=== PATIENT | female | born 1955 | race Caucasian/White ===

== ENCOUNTER 2018-11-17 07:51 | Day surgery (SDC) | payer OTHER, BC ==
[2018-11-14 17:00] VITALS: BMI 19.8
[2018-11-17] MEDS ORDERED: ONABOTULINUMTOXINA 200 UNIT/VIAL VIAL NR ONE (09:30)
[2018-11-17] MEDS ORDERED: PROPOFOL 20 ML ONE ×2 (10:55)
[2018-11-17] MEDS ORDERED: SUCCINYLCHOLINE CHLORIDE 200 MG/10 ML VIAL ONE (10:55)
[2018-11-17] MEDS ORDERED: MIDAZOLAM HCL 2 MG/2 ML SINGLE DOSE VIAL ONE (10:56)
--- NOTE | 2018-11-17 11:30 | OP ---
Operative Note - Note: Operative Date: 11/17/18 Pre-Operative Diagnosis: urge incontinence/overactive bladder Operation: cystoscopy and intravesical injection of botox Implants: 200 units of Botox in 20 cc NS Post-Operative Diagnosis: Same as Pre-op Surgeon: Rashel Ying Anesthesia: General
[2018-11-17] MEDS ORDERED: oxyCODONE HCL 5 MG TABLET PO PRN (11:40)
[2018-11-17] MEDS ORDERED: ONDANSETRON 4 MG/2 ML VIAL IVPUSH PRN (11:40)
[2018-11-17] MEDS ORDERED: PROMETHAZINE HCL 25 MG/1 ML VIAL IVPUSH PRN (11:40)
[2018-11-17] MEDS ORDERED: LACTATED RINGERS SOLUTION 1,000 ML IV SCH (11:45)
[2018-11-17 14:11] VITALS: BP 119/73; PULSE 70; TEMP 97.4
--- NOTE | 2018-12-07 18:33 | OP ---
DATE OF OPERATION: 11/17/2018 PREOPERATIVE DIAGNOSIS: Urge incontinence and overactive bladder. POSTOPERATIVE DIAGNOSIS: Urge incontinence and overactive bladder. PROCEDURE: Cystoscopy and intravesical injection of Botox. OPERATION: The patient was placed in the dorsal lithotomy position, prepped and draped in the usual sterile manner after anesthesia and preoperative antibiotics had been administered. At this point, cystoscopy was performed, and 200 units of Botox and 20 mL of normal saline was injected in 1 mL increments along the bladder base and lateral paiz. There was no evidence of abnormal bleeding. The patient tolerated the procedure very well. The disposition of the patient was to the recovery room. Catherine [id number]
== END 2018-11-17 14:00 | disposition home or self-care (01) ==
LOC: JASU-SURG 07:51
PROVIDERS: ATTEND Urology
PROC: 3E0K8GC Introduction of Other Therapeutic Substance into Genitourinary Tract, Via Natural or Artificial Opening Endoscopic (ICD-10-PCS; principal; 2018-11-17 09:30)
DX: N39.41 Urge incontinence (principal); N32.81 Overactive bladder
CPT/HCPCS: 94760; J0585

== ENCOUNTER → 2020-02-04 | Day surgery (SDC) | payer OTHER, BC ==
--- NOTE | 2020-02-11 09:52 | PATH ---
Surgical Pathology Report Patient Name: HALLIE SWENSON [facility]. Rec. #: [id number] /Age/Gender: 1955 (Age: 65) / F Account: [id number] Location: RADIOLOGY [facility] Taken: 02/04/2020 Received: 02/04/2020 Reported: 02/05/2020 Physicians: Catherine Fry M.D. Specimen(s) Received A: BREAST, LEFT, 1:00, RETRO, ULTRASOUND GUIDED CORE BIOPSY B: BREAST, LEFT, 2:00, ULTRASOUND GUIDED CORE BIOPSY Clinical History Palpable mass, nonpalpable lesion Ultrasound findings: Suspicious Left breast 1:00-0.89 cm Left breast o'clock-0.56 cm Final Diagnosis A. BREAST, LEFT, 1:00, RETRO, ULTRASOUND GUIDED CORE BIOPSY: BENIGN BREAST PARENCHYMA WITH DILATED DUCTS, HISTIOCYTIC INFILTRATE, AND CHRONIC INFLAMMATION, SUGGESTIVE OF CYST RUPTURE. B. BREAST, LEFT, 2:00, ULTRASOUND GUIDED CORE BIOPSY: BENIGN BREAST PARENCHYMA. Electronically Signed Sana Troy M.D. Gross Description A. Received in formalin labeled "left 1:00," are 4 toth-yellow, cylindrical portions of fibroadipose tissue ranging from 0.6-1.0 cm in length and averaging 0.1 cm in diameter. The specimens are submitted in toto in one cassette. B. Received in formalin labeled "left 2:00," is a 0.7 x 0.5 x 0.1 cm aggregate of toth-yellow fragments of fibroadipose tissue. The formalin is filtered and the specimen is entirely submitted in one cassette. Time to formalin fixation: Less than one minute Total formalin fixation time: Approximately 8 hours. /02/04/2020 saudi/02/04/2020
== END | disposition home or self-care (01) ==
LOC: JRADUS-SUR 08:35
PROVIDERS: ATTEND Internal Medicine
PROC: 0HBU3ZX Excision of Left Breast, Percutaneous Approach, Diagnostic (ICD-10-PCS; principal; 2020-02-04)
DX: N63.21 Unspecified lump in the left breast, upper outer quadrant (principal)
CPT/HCPCS: 19083; 19084; 87899; 88305-TC; A4648

== ENCOUNTER 2021-12-21 04:08 | Inpatient (IN) | payer OTHER, BC ==
[2021-12-21 06:58] LABS: INR 1.07 (0.83-1.09); PROTHROMBIN TIME (PATIENT) 12.3 SEC (9.7-13.0)
[2021-12-21] MEDS ORDERED: GENTAMICIN SO4 80 MG/2 ML VIAL ONE (07:06)
[2021-12-21] MEDS ORDERED: THROMBIN (BOVINE) 20,000 UNIT VIAL TP ONE (07:06)
[2021-12-21] MEDS ORDERED: LIDOCAINE 1%/EPI 1:100000 (20 ML MULTI DOSE VIAL) ONE (07:06)
[2021-12-21] MEDS ORDERED: VANCOMYCIN 1,000 MG VIAL (RESTRICTED TO ID ONLY) ONE ×2 (07:08→09:18)
[2021-12-21] MEDS ORDERED: BUPIVACAINE LIPOSOME/PF (EXPAREL) 266 MG/20 ML VIAL ONE (07:10)
[2021-12-21] MEDS ORDERED: PROPOFOL 20 ML ONE (07:55)
[2021-12-21] MEDS ORDERED: fentaNYL CITRATE 250 MCG/5 ML VIAL ONE (07:55)
[2021-12-21] MEDS ORDERED: ROCURONIUM BROMIDE 50 MG/5 ML SYRINGE ONE ×2 (07:55→09:46)
[2021-12-21] MEDS ORDERED: MIDAZOLAM HCL 2 MG/2 ML SINGLE DOSE VIAL ONE (07:55)
[2021-12-21] MEDS ORDERED: morphine SULFATE/PF 1 MG/2 ML (2cc Syringe - QUVA) IT ONE (08:18)
[2021-12-21] MEDS ORDERED: ceFAZolin SODIUM 1 GM VIAL IVPB ONE (08:20)
[2021-12-21] MEDS ORDERED: VANCOMYCIN 1,000 MG VIAL (RESTRICTED TO ID ONLY) IVPB ONE (08:40)
[2021-12-21] MEDS ORDERED: THROMBIN (BOVINE) 5,000 UNIT VIAL TP ONE (09:17)
[2021-12-21] MEDS ORDERED: NEOSTIGMINE METHYLSULFATE 0.5 MG/1 ML - 10 ML MDV ONE (09:17)
[2021-12-21] MEDS ORDERED: DEXAMETHASONE SOD PHOSPHATE 4 MG/1 ML VIAL ONE (09:18)
[2021-12-21] MEDS ORDERED: ceFAZolin SODIUM 1 GM VIAL ONE (09:18)
[2021-12-21] MEDS ORDERED: ONDANSETRON 4 MG/2 ML VIAL ONE (09:18)
[2021-12-21] MEDS ORDERED: TRANEXAMIC ACID 1000 MG/10 ML VIAL ONE (09:18)
[2021-12-21] MEDS ORDERED: GLYCOPYRROLATE 0.2 MG/1 ML VIAL ONE (09:18)
[2021-12-21] MEDS ORDERED: BUPIVACAINE LIPOSOME/PF (EXPAREL) 266 MG/20 ML VIAL NR ONE (09:53)
[2021-12-21] MEDS ORDERED: BUPIVACAINE HCL/PF 0.5% (5 MG/ML) 30 ML VIAL IJ ONE (09:54)
[2021-12-21 10:17] LABS: EPI CELLS 10 /uL (0-25.1); HYALINE CASTS 0 /uL (0-3.1); URINE APPEARANCE CLEAR; URINE BACTERIA 15 /uL (0-1359); URINE BILIRUBIN NEGATIVE (NEGATIVE); URINE COLOR YELLOW; URINE GLUCOSE (UA) NEGATIVE (NEGATIVE); URINE KETONE NEGATIVE (NEGATIVE); URINE LEUK ESTERASE NEGATIVE (NEGATIVE); URINE NITRITE NEGATIVE (NEGATIVE); URINE PROTEIN NEGATIVE (NEGATIVE); URINE RBC 14 /uL (0-23.9); URINE UROBILINOGEN 0.2 mg/dL (0.2-1.0); URINE WBC 14 /uL (0-25.8)
[2021-12-21] MEDS ORDERED: NALOXONE HCL 0.4 MG/ML VIAL IVPUSH PRN (10:50)
[2021-12-21] MEDS ORDERED: ONDANSETRON 4 MG/2 ML VIAL IVPUSH PRN ×3 (10:50→17:00)
[2021-12-21] MEDS ORDERED: oxyCODONE HCL 5 MG TABLET PO PRN (10:50)
[2021-12-21] MEDS ORDERED: SUMAtriptan SUCCINATE 50 MG TABLET PO PRN (10:56)
[2021-12-21] MEDS ORDERED: LACTATED RINGERS SOLUTION 1,000 ML IV SCH (11:00)
[2021-12-21] MEDS: LACTATED RINGERS SOLUTION 1,000 ML/1,000 ML INFUS.BAG IV SCH (14:40)
[2021-12-21] MEDS: TIZANIDINE HCL 4 MG TABLET PO SCH ×2 (16:20→21:39)
[2021-12-21] MEDS: DOCUSATE SODIUM 100 MG CAPSULE (FP) PO SCH ×2 (16:41→21:38)
[2021-12-21] MEDS: HEPARIN NA (PORCINE) 5,000 UNITS/ML 1ML VIAL SQ SCH ×2 (16:41→21:38)
[2021-12-21] MEDS: ACETAMINOPHEN 325 MG TABLET (FP) PO SCH (18:33)
[2021-12-21] MEDS: CEFAZOLIN IVPB SCH (19:01)
[2021-12-21] MEDS: SODIUM CHLORIDE IVPB SCH (19:01)
[2021-12-21] MEDS: ATORVASTATIN CA 20 MG TABLET (FP) PO SCH (21:38)
[2021-12-21] MEDS: oxyCODONE HCL 10 MG SUSTAINED ACTING TABLET PO SCH (21:38)
[2021-12-22] MEDS: SODIUM CHLORIDE IVPB SCH (01:31)
[2021-12-22] MEDS: CEFAZOLIN IVPB SCH (01:31)
[2021-12-22] MEDS: ACETAMINOPHEN 325 MG TABLET (FP) PO SCH ×4 (01:32→18:26)
[2021-12-22] MEDS: TIZANIDINE HCL 4 MG TABLET PO SCH ×3 (06:19→21:57)
[2021-12-22] MEDS: HEPARIN NA (PORCINE) 5,000 UNITS/ML 1ML VIAL SQ SCH ×3 (06:19→21:57)
[2021-12-22] MEDS: DOCUSATE SODIUM 100 MG CAPSULE (FP) PO SCH ×3 (06:19→21:57)
[2021-12-22] MEDS: LACTATED RINGERS SOLUTION 1,000 ML/1,000 ML INFUS.BAG IV SCH ×3 (06:20→13:19)
[2021-12-22 08:54] LABS: HEMATOCRIT 28.3 % (32.4-45.2); HEMOGLOBIN 9.4 GM/dL (10.7-15.3); MCH 30.1 pg (25.7-33.7); MCHC 33.2 g/dl (32.0-36.0); MEAN CELL VOLUME 90.7 fl (80-96); MEAN PLT VOLUME 7.1 fl (7.5-11.1); PLATELET COUNT 225 10^3/uL (134-434); RBC 3.12 M/mm3 (3.60-5.2); RDW 13.2 % (11.6-15.6); WHITE BLOOD COUNT 9.7 K/mm3 (4.0-10.0)
[2021-12-22 09:19] LABS: CALCIUM 8.5 mg/dL (8.5-10.1)
[2021-12-22 09:20] LABS: BLOOD UREA NITROGEN 21.4 mg/dL (7-18)
[2021-12-22 09:22] LABS: CREATININE 0.7 mg/dL (0.55-1.3)
[2021-12-22] MEDS ORDERED: PATIENT'S OWN MEDICATION (NON-FORMULARY) (Amlodipine Besylate/Benazepril [Lotrel 5-40 Mg C PO SCH (10:00)
[2021-12-22] MEDS: DULoxetine HCL 30 MG CAPSULE.DR PO SCH (10:51)
[2021-12-22] MEDS: amLODIPine BESYLATE 5 MG TABLET (FP) PO SCH (10:56)
[2021-12-22] MEDS: oxyCODONE HCL 10 MG SUSTAINED ACTING TABLET PO SCH ×2 (10:56→21:57)
[2021-12-22] MEDS: LISINOPRIL 20 MG TABLET PO SCH (10:57)
[2021-12-22] MEDS: ATORVASTATIN CA 20 MG TABLET (FP) PO SCH (21:57)
[2021-12-23] MEDS: ACETAMINOPHEN 325 MG TABLET (FP) PO SCH ×5 (01:12→23:52)
[2021-12-23] MEDS: LACTATED RINGERS SOLUTION 1,000 ML/1,000 ML INFUS.BAG IV SCH ×2 (04:00→09:41)
[2021-12-23] MEDS: DOCUSATE SODIUM 100 MG CAPSULE (FP) PO SCH ×3 (06:23→21:41)
[2021-12-23] MEDS: TIZANIDINE HCL 4 MG TABLET PO SCH ×3 (06:26→23:53)
[2021-12-23] MEDS: HEPARIN NA (PORCINE) 5,000 UNITS/ML 1ML VIAL SQ SCH ×3 (06:26→21:41)
[2021-12-23 08:38] LABS: EPI CELLS 5 /uL (0-25.1); HYALINE CASTS 0 /uL (0-3.1); URINE APPEARANCE CLEAR; URINE BACTERIA 10 /uL (0-1359); URINE BILIRUBIN NEGATIVE (NEGATIVE); URINE COLOR YELLOW; URINE GLUCOSE (UA) NEGATIVE (NEGATIVE); URINE KETONE NEGATIVE (NEGATIVE); URINE LEUK ESTERASE NEGATIVE (NEGATIVE); URINE NITRITE NEGATIVE (NEGATIVE); URINE PROTEIN NEGATIVE (NEGATIVE); URINE RBC 13 /uL (0-23.9); URINE UROBILINOGEN 0.2 mg/dL (0.2-1.0); URINE WBC 4 /uL (0-25.8)
[2021-12-23 09:14] LABS: BASO % 0.3 % (0-2.0); HEMATOCRIT 26.7 % (32.4-45.2); HEMOGLOBIN 8.8 GM/dL (10.7-15.3); LYMPH % 19.1 % (8-40); MCHC 33.1 g/dl (32.0-36.0); MEAN CELL VOLUME 90.8 fl (80-96); MEAN PLT VOLUME 7.3 fl (7.5-11.1); MONO % 12.3 % (3.8-10.2); NEUT % 68.3 % (42.8-82.8); PLATELET COUNT 194 10^3/uL (134-434); RBC 2.95 M/mm3 (3.60-5.2); RDW 12.9 % (11.6-15.6); WHITE BLOOD COUNT 6.5 K/mm3 (4.0-10.0)
[2021-12-23] MEDS: LISINOPRIL 20 MG TABLET PO SCH (09:32)
[2021-12-23] MEDS: amLODIPine BESYLATE 5 MG TABLET (FP) PO SCH (09:32)
[2021-12-23] MEDS: oxyCODONE HCL 10 MG SUSTAINED ACTING TABLET PO SCH ×2 (09:39→21:41)
[2021-12-23] MEDS: DULoxetine HCL 30 MG CAPSULE.DR PO SCH (09:40)
[2021-12-23 09:54] LABS: ALBUMIN 2.6 g/dl (3.4-5.0); CREATININE 0.5 mg/dL (0.55-1.3)
[2021-12-23 09:55] LABS: BLOOD UREA NITROGEN 10.8 mg/dL (7-18)
[2021-12-23 09:56] LABS: BILIRUBIN,TOTAL 0.5 mg/dL (0.2-1)
[2021-12-23] MEDS: SODIUM CHLORIDE 1,000 ML IV SCH ×2 (10:34→21:43)
[2021-12-23] MEDS: oxyCODONE HCL 5 MG TABLET PO PRN (14:12)
[2021-12-23 20:47] VITALS: BMI 18.6
[2021-12-23] MEDS: ATORVASTATIN CA 20 MG TABLET (FP) PO SCH (21:41)
[2021-12-24] MEDS: HEPARIN NA (PORCINE) 5,000 UNITS/ML 1ML VIAL SQ SCH ×3 (05:42→21:40)
[2021-12-24] MEDS: DOCUSATE SODIUM 100 MG CAPSULE (FP) PO SCH ×3 (05:43→21:39)
[2021-12-24] MEDS: ACETAMINOPHEN 325 MG TABLET (FP) PO SCH ×3 (05:43→17:58)
[2021-12-24] MEDS: oxyCODONE HCL 5 MG TABLET PO PRN (05:44)
[2021-12-24] MEDS: TIZANIDINE HCL 4 MG TABLET PO SCH ×3 (06:47→22:44)
[2021-12-24] MEDS: POLYETHYLENE GLYCOL (HEALTHYLAX) 3350 17 GM PACKET PO SCH (09:24)
[2021-12-24] MEDS: oxyCODONE HCL 10 MG SUSTAINED ACTING TABLET PO SCH ×2 (09:24→21:40)
[2021-12-24] MEDS: DULoxetine HCL 30 MG CAPSULE.DR PO SCH (09:24)
[2021-12-24] MEDS: SODIUM CHLORIDE 1,000 ML IV SCH ×2 (09:25→21:41)
[2021-12-24] MEDS: ATORVASTATIN CA 20 MG TABLET (FP) PO SCH (21:40)
[2021-12-24] MEDS: CHLORHEXIDINE GLUCONATE 4% CLEANSER FOR DECOLONIZATION TP SCH (22:08)
[2021-12-25] MEDS: ACETAMINOPHEN 325 MG TABLET (FP) PO SCH ×4 (00:34→17:08)
[2021-12-25] MEDS: HEPARIN NA (PORCINE) 5,000 UNITS/ML 1ML VIAL SQ SCH ×3 (05:54→21:17)
[2021-12-25] MEDS: DOCUSATE SODIUM 100 MG CAPSULE (FP) PO SCH ×3 (05:54→21:14)
[2021-12-25] MEDS: TIZANIDINE HCL 4 MG TABLET PO SCH ×3 (05:55→21:14)
[2021-12-25] MEDS: SODIUM CHLORIDE 1,000 ML IV SCH ×3 (09:01→19:37)
[2021-12-25 10:02] LABS: BASO % 0.5 % (0-2.0); EOS % 0.9 % (0-4.5); HEMOGLOBIN 9.6 GM/dL (10.7-15.3); LYMPH % 19.2 % (8-40); MCH 30.6 pg (25.7-33.7); MCHC 34.3 g/dl (32.0-36.0); MEAN CELL VOLUME 89.4 fl (80-96); MEAN PLT VOLUME 7.4 fl (7.5-11.1); MONO % 9.4 % (3.8-10.2); PLATELET COUNT 234 10^3/uL (134-434); RBC 3.13 M/mm3 (3.60-5.2); RDW 13.1 % (11.6-15.6); WHITE BLOOD COUNT 5.4 K/mm3 (4.0-10.0)
[2021-12-25] MEDS: oxyCODONE HCL 10 MG SUSTAINED ACTING TABLET PO SCH ×2 (10:06→21:15)
[2021-12-25] MEDS: DULoxetine HCL 30 MG CAPSULE.DR PO SCH (10:07)
[2021-12-25] MEDS: POLYETHYLENE GLYCOL (HEALTHYLAX) 3350 17 GM PACKET PO SCH (10:07)
[2021-12-25 10:32] LABS: BLOOD UREA NITROGEN 6.9 mg/dL (7-18)
[2021-12-25 10:33] LABS: ALBUMIN 2.6 g/dl (3.4-5.0); CALCIUM 8.4 mg/dL (8.5-10.1)
[2021-12-25 10:37] LABS: CREATININE 0.5 mg/dL (0.55-1.3)
[2021-12-25 10:38] LABS: BILIRUBIN,TOTAL 0.4 mg/dL (0.2-1); TOT PROT 5.4 g/dl (6.4-8.2)
[2021-12-25] MEDS: ATORVASTATIN CA 20 MG TABLET (FP) PO SCH (21:14)
[2021-12-26] MEDS: ACETAMINOPHEN 325 MG TABLET (FP) PO SCH ×4 (01:01→17:03)
[2021-12-26] MEDS: HEPARIN NA (PORCINE) 5,000 UNITS/ML 1ML VIAL SQ SCH ×3 (05:32→22:26)
[2021-12-26] MEDS: DOCUSATE SODIUM 100 MG CAPSULE (FP) PO SCH ×3 (05:34→22:26)
[2021-12-26] MEDS: TIZANIDINE HCL 4 MG TABLET PO SCH ×3 (05:34→22:26)
[2021-12-26] MEDS: oxyCODONE HCL 10 MG SUSTAINED ACTING TABLET PO SCH ×2 (10:02→22:24)
[2021-12-26] MEDS: POLYETHYLENE GLYCOL (HEALTHYLAX) 3350 17 GM PACKET PO SCH (10:03)
[2021-12-26] MEDS: DULoxetine HCL 30 MG CAPSULE.DR PO SCH (10:03)
[2021-12-26] MEDS: SODIUM CHLORIDE 1,000 ML IV SCH ×2 (10:15→16:54)
[2021-12-26] MEDS ORDERED: BISACODYL 5 MG TABLET.DR (FP) PO PRN (12:49)
[2021-12-26] MEDS: ATORVASTATIN CA 20 MG TABLET (FP) PO SCH (22:26)
[2021-12-27] MEDS: ACETAMINOPHEN 325 MG TABLET (FP) PO SCH ×3 (02:21→12:41)
[2021-12-27] MEDS: DOCUSATE SODIUM 100 MG CAPSULE (FP) PO SCH ×2 (06:22→13:46)
[2021-12-27] MEDS: HEPARIN NA (PORCINE) 5,000 UNITS/ML 1ML VIAL SQ SCH ×2 (06:24→13:46)
[2021-12-27] MEDS: TIZANIDINE HCL 4 MG TABLET PO SCH ×2 (06:27→13:46)
[2021-12-27] MEDS: POLYETHYLENE GLYCOL (HEALTHYLAX) 3350 17 GM PACKET PO SCH (09:28)
[2021-12-27] MEDS: oxyCODONE HCL 10 MG SUSTAINED ACTING TABLET PO SCH (09:29)
[2021-12-27] MEDS: SODIUM CHLORIDE 1,000 ML IV SCH (09:36)
[2021-12-27] MEDS: DULoxetine HCL 30 MG CAPSULE.DR PO SCH (09:36)
[2021-12-27 15:29] VITALS: BP 137/85; PULSE 65; TEMP 98.2
== END 2021-12-27 17:30 | disposition home health service (06) | DRG 454 ==
LOC: J2C 04:08 → J6WEST-2 15:45 → J5S 12-22 12:50
PROVIDERS: ADMIT Neurological Surgery; ATTEND Internal Medicine
PROC: 0SG0071 Fusion of Lumbar Vertebral Joint with Autologous Tissue Substitute, Posterior Approach, Posterior Column, Open Approach (ICD-10-PCS; 2021-12-21)
PROC: 01NB0ZZ Release Lumbar Nerve, Open Approach (ICD-10-PCS; 2021-12-21)
PROC: 0QB00ZZ Excision of Lumbar Vertebra, Open Approach (ICD-10-PCS; 2021-12-21)
PROC: 4A1004G Monitoring of Central Nervous Electrical Activity, Intraoperative, Open Approach (ICD-10-PCS; 2021-12-21)
PROC: 0SG00AJ Fusion of Lumbar Vertebral Joint with Interbody Fusion Device, Posterior Approach, Anterior Column, Open Approach (ICD-10-PCS; principal; 2021-12-21 08:00)
DX: M48.061 Spinal stenosis, lumbar region without neurogenic claudication (principal); G12.23 Primary lateral sclerosis; M48.56XA Collapsed vertebra, not elsewhere classified, lumbar region, initial encounter for fracture; M47.816 Spondylosis without myelopathy or radiculopathy, lumbar region; M81.0 Age-related osteoporosis without current pathological fracture; M21.379 Foot drop, unspecified foot; G89.29 Other chronic pain; K59.00 Constipation, unspecified; M41.86 Other forms of scoliosis, lumbar region
CPT/HCPCS: 36415; 72131-TC; 76000-TC-FY; 80048; 80053; 81003; 85025; 85027; 85610; 86850; 86900; 86901; 86922; 94010; 94760; 97116-GP; 97163-GP; C9803; J1644; U0003; U0005

== ENCOUNTER 2022-05-04 14:46 | Emergency (ER) | payer OTHER, BC ==
[2022-05-04 14:57] VITALS: TEMP 98.2; BMI 18.6
[2022-05-04] MEDS ORDERED: ACETAMINOPHEN 1000 MG/100 ML BAG IVPB ONE (16:11)
[2022-05-04] MEDS ORDERED: METOCLOPRAMIDE HCL INJECTION 10 MG/2 ML VIAL IVPB ONE (16:11)
[2022-05-04] MEDS ORDERED: SODIUM CHLORIDE 0.9% 500 ML INFUS.BAG IV ONE (16:11)
[2022-05-04] MEDS ORDERED: MAG HYDROX/AL HYDROX/SIMETH 30 ML UNIT-DOSE CUP PO ONE (16:13)
[2022-05-04] MEDS ORDERED: FAMOTIDINE 20 MG/50 ML IVPB 20 MG/50 ML MG IVPB ONE (16:13)
[2022-05-04] MEDS ORDERED: METOCLOPRAMIDE HCL INJECTION 10 MG/2 ML VIAL ONE (16:23)
[2022-05-04] MEDS ORDERED: ACETAMINOPHEN INJECTION 100 ML IVPB ONE (16:23)
[2022-05-04] MEDS ORDERED: MAG HYDROX/AL HYDROX/SIMETH 30 ML UNIT-DOSE CUP ONE (16:24)
[2022-05-04] MEDS ORDERED: FAMOTIDINE 10 MG/ML VIAL IVPB ONE (16:24)
[2022-05-04 17:16] LABS: ALBUMIN 4.1 g/dl (3.4-5.0); BLOOD UREA NITROGEN 14.2 mg/dL (7-18); MAGNESIUM 2.4 mg/dL (1.8-2.4)
[2022-05-04 17:20] LABS: ACTIVATED PTT 26.6 SECONDS (25.2-36.5); CREATININE 0.7 mg/dL (0.55-1.3); PROTHROMBIN TIME (PATIENT) 11.5 SEC (9.7-13.0)
[2022-05-04 17:21] LABS: BASO % 0.4 % (0-2.0); BILIRUBIN,TOTAL 0.7 mg/dL (0.2-1); EOS % 0.6 % (0-4.5); HEMOGLOBIN 14.2 GM/dL (10.7-15.3); LYMPH % 17.8 % (8-40); MCH 30.6 pg (25.7-33.7); MCHC 34.6 g/dl (32.0-36.0); MEAN CELL VOLUME 88.3 fl (80-96); MEAN PLT VOLUME 7.6 fl (7.5-11.1); MONO % 6.7 % (3.8-10.2); NEUT % 74.5 % (42.8-82.8); PLATELET COUNT 323 10^3/uL (134-434); RBC 4.64 M/mm3 (3.60-5.2); RDW 14.1 % (11.6-15.6); WHITE BLOOD COUNT 8.5 K/mm3 (4.0-10.0)
[2022-05-04 17:43] LABS: PLATELET ESTIMATE ADEQUATE
[2022-05-04] MEDS ORDERED: ONDANSETRON 4 MG/2 ML VIAL IVPUSH ONE ×2 (18:27→19:35)
[2022-05-04] MEDS ORDERED: ONDANSETRON 4 MG/2 ML VIAL ONE (19:35)
[2022-05-04 19:51] VITALS: BP 109/63; PULSE 68
== END 2022-05-05 03:39 | disposition home or self-care (01) ==
LOC: JER 14:46
PROC: 3E0333Z Introduction of Anti-inflammatory into Peripheral Vein, Percutaneous Approach (ICD-10-PCS; principal; 2022-05-04)
PROC: 3E033GC Introduction of Other Therapeutic Substance into Peripheral Vein, Percutaneous Approach (ICD-10-PCS; 2022-05-04)
PROC: 3E033GC Introduction of Other Therapeutic Substance into Peripheral Vein, Percutaneous Approach (ICD-10-PCS; 2022-05-04)
DX: R11.2 Nausea with vomiting, unspecified (principal)
CPT/HCPCS: 36415; 70450-TC; 71045-TC-FY; 74176-TC; 80053; 83690; 83735; 84484; 85025; 85610; 85730; 93005; 93010; 99285-25; C9803-CS; U0003; U0005

== ENCOUNTER 2022-07-17 04:00 | Inpatient (IN) | payer OTHER, BC ==
[2022-07-17] MEDS ORDERED: THROMBIN (BOVINE) 5,000 UNIT VIAL TP ONE ×3 (06:50→09:08)
[2022-07-17] MEDS ORDERED: VANCOMYCIN 1,000 MG VIAL (RESTRICTED TO ID ONLY) ONE ×2 (06:50→08:30)
[2022-07-17] MEDS ORDERED: LIDOCAINE 1%/EPI 1:100000 (20 ML MULTI DOSE VIAL) ONE (06:50)
[2022-07-17] MEDS ORDERED: GENTAMICIN SO4 80 MG/2 ML VIAL ONE (06:50)
[2022-07-17] MEDS ORDERED: BUPIVACAINE LIPOSOME/PF (EXPAREL) 266 MG/20 ML VIAL ONE (06:51)
[2022-07-17] MEDS ORDERED: BUPIVACAINE HCL/PF 0.5% (5MG/ML) 10 ML VIAL ONE (06:51)
[2022-07-17] MEDS ORDERED: LIDOCAINE 1%/EPI 1:100000 (20 ML MULTI DOSE VIAL) IJ ONE ×2 (07:24→08:40)
[2022-07-17] MEDS ORDERED: LIDOCAINE HCL 2% 100 MG/5 ML DISP.SYRIN ONE (07:25)
[2022-07-17] MEDS ORDERED: DEXAMETHASONE SOD PHOSPHATE 4 MG/1 ML VIAL ONE (07:25)
[2022-07-17] MEDS ORDERED: ONDANSETRON 4 MG/2 ML VIAL ONE ×2 (07:25→14:30)
[2022-07-17] MEDS ORDERED: PROPOFOL 40 ML ONE (07:25)
[2022-07-17] MEDS ORDERED: SUCCINYLCHOLINE CHLORIDE 200 MG/10 ML SYRINGE ONE (07:25)
[2022-07-17] MEDS ORDERED: MIDAZOLAM HCL 2 MG/2 ML SINGLE DOSE VIAL ONE (07:26)
[2022-07-17] MEDS ORDERED: ROCURONIUM BROMIDE 50 MG/5 ML SYRINGE ONE (07:26)
[2022-07-17] MEDS ORDERED: ceFAZolin SODIUM 1 GM VIAL IVPB ONE ×2 (07:28→08:30)
[2022-07-17] MEDS ORDERED: GENTAMICIN SO4 80 MG/2 ML VIAL IVPB ONE ×2 (07:30→09:21)
[2022-07-17] MEDS ORDERED: VANCOMYCIN 1 GM in D5W (PRE-DOCKED) 1,000 MG/250 ML IVPB ONE ×2 (07:30→08:30)
[2022-07-17] MEDS ORDERED: HYDROGEN PEROXIDE 473 ML PO ONE ×2 (07:31→09:21)
[2022-07-17 08:17] LABS: HEMATOCRIT 37.8 % (32.4-45.2); HEMOGLOBIN 13.4 GM/dL (10.7-15.3); MCH 30.9 pg (25.7-33.7); MCHC 35.4 g/dl (32.0-36.0); MEAN CELL VOLUME 87.2 fl (80-96); MEAN PLT VOLUME 6.9 fl (7.5-11.1); PLATELET COUNT 325 10^3/uL (134-434); RBC 4.34 M/mm3 (3.60-5.2); RDW 13.2 % (11.6-15.6); WHITE BLOOD COUNT 6.1 K/mm3 (4.0-10.0)
[2022-07-17] MEDS ORDERED: ceFAZolin SODIUM 1 GM VIAL ONE ×2 (08:30→17:14)
[2022-07-17] MEDS ORDERED: TRANEXAMIC ACID 1000 MG/10 ML VIAL ONE (08:44)
[2022-07-17] MEDS ORDERED: BUPIVACAINE LIPOSOME/PF (EXPAREL) 266 MG/20 ML VIAL NR ONE ×2 (09:21→11:23)
[2022-07-17] MEDS ORDERED: BUPIVACAINE HCL/PF 0.5% (5MG/ML) 10 ML VIAL IJ ONE ×2 (09:22→11:23)
[2022-07-17] MEDS ORDERED: VANCOMYCIN 1 GM in NS (PRE-DOCKED) 1,000 MG/250 ML IVPB ONE (11:00)
[2022-07-17] MEDS ORDERED: oxyCODONE HCL 5 MG TABLET PO PRN ×2 (12:18)
[2022-07-17] MEDS ORDERED: PROMETHAZINE HCL 25 MG/1 ML VIAL IVPUSH PRN (12:18)
[2022-07-17] MEDS ORDERED: NALOXONE HCL 0.4 MG/ML VIAL IVPUSH PRN (12:18)
[2022-07-17] MEDS ORDERED: ONDANSETRON 4 MG/2 ML VIAL IVPUSH PRN ×2 (12:18)
[2022-07-17] MEDS ORDERED: ACETAMINOPHEN 1000 MG/100 ML BAG IVPB ONE (12:19)
[2022-07-17] MEDS ORDERED: LACTATED RINGERS SOLUTION 1,000 ML IV SCH (12:30)
[2022-07-17] MEDS ORDERED: diphenhydrAMINE HCL 25 MG CAPSULE (FP) PO PRN (12:30)
[2022-07-17] MEDS: MEPERIDINE HCL 25 MG/ML VIAL ONE ×2 (12:33→12:48)
[2022-07-17] MEDS ORDERED: SUMAtriptan SUCCINATE 50 MG TABLET PO PRN (12:34)
[2022-07-17] MEDS ORDERED: ACETAMINOPHEN INJECTION 100 ML IVPB ONE (12:36)
[2022-07-17] MEDS ORDERED: cloNIDine HCL 0.1 MG TABLET PO ONE (13:52)
[2022-07-17] MEDS: DOCUSATE SODIUM 100 MG CAPSULE (FP) PO SCH ×2 (14:00→21:31)
[2022-07-17] MEDS ORDERED: PROMETHAZINE HCL 25 MG/1 ML VIAL ONE (16:25)
[2022-07-17] MEDS: LACTATED RINGERS SOLUTION 1,000 ML/1,000 ML INFUS.BAG IV SCH ×2 (17:00→19:00)
[2022-07-17] MEDS: ACETAMINOPHEN 325 MG TABLET (FP) PO SCH ×2 (17:17→18:58)
[2022-07-17] MEDS: CEFAZOLIN 1 GM/D5W 1 GM/50 ML BAG IVPB SCH ×2 (17:24→18:25)
[2022-07-17] MEDS ORDERED: MEPERIDINE HCL 25 MG/ML VIAL IVPUSH PRN (19:54)
[2022-07-17] MEDS: HEPARIN NA (PORCINE) 5,000 UNITS/ML 1ML VIAL SQ SCH (21:31)
[2022-07-17] MEDS: ATORVASTATIN CA 20 MG TABLET (FP) PO SCH (21:31)
[2022-07-18] MEDS: ACETAMINOPHEN 325 MG TABLET (FP) PO SCH ×6 (00:48→21:53)
[2022-07-18] MEDS: LACTATED RINGERS SOLUTION 1,000 ML/1,000 ML INFUS.BAG IV SCH ×2 (01:48→12:34)
[2022-07-18] MEDS: CEFAZOLIN 1 GM in DEXTROSE 5%-WATER - 50 ML IVPB SCH ×3 (01:48→17:24)
[2022-07-18] MEDS: HEPARIN NA (PORCINE) 5,000 UNITS/ML 1ML VIAL SQ SCH ×3 (05:41→21:55)
[2022-07-18] MEDS: DOCUSATE SODIUM 100 MG CAPSULE (FP) PO SCH ×3 (05:41→21:55)
[2022-07-18 07:00] LABS: HEMATOCRIT 29.9 % (32.4-45.2); HEMOGLOBIN 10.5 GM/dL (10.7-15.3); MCH 30.8 pg (25.7-33.7); MCHC 35.1 g/dl (32.0-36.0); MEAN CELL VOLUME 87.8 fl (80-96); MEAN PLT VOLUME 7.1 fl (7.5-11.1); PLATELET COUNT 250 10^3/uL (134-434); RDW 13.2 % (11.6-15.6); WHITE BLOOD COUNT 7.4 K/mm3 (4.0-10.0)
[2022-07-18 07:24] LABS: BLOOD UREA NITROGEN 13.2 mg/dL (7-18); CALCIUM 8.3 mg/dL (8.5-10.1)
[2022-07-18 07:27] LABS: CREATININE 0.6 mg/dL (0.55-1.3)
[2022-07-18] MEDS: LISINOPRIL 20 MG TABLET PO SCH (09:25)
[2022-07-18] MEDS: amLODIPine BESYLATE 5 MG TABLET (FP) PO SCH (09:25)
[2022-07-18] MEDS: DULoxetine HCL 30 MG CAPSULE.DR PO SCH (09:25)
[2022-07-18] MEDS: FERROUS SO4 325 MG TABLET (FP) PO SCH (09:25)
[2022-07-18] MEDS: FOLIC ACID 1 MG TABLET (FP) PO SCH (09:25)
[2022-07-18] MEDS: ONDANSETRON 4 MG/2 ML VIAL IVPUSH PRN ×2 (10:25→18:09)
[2022-07-18] MEDS: POLYETHYLENE GLYCOL (HEALTHYLAX) 3350 17 GM PACKET PO SCH (11:48)
[2022-07-18] MEDS: ATORVASTATIN CA 20 MG TABLET (FP) PO SCH (21:55)
[2022-07-19] MEDS: CEFAZOLIN 1 GM in DEXTROSE 5%-WATER - 50 ML IVPB SCH ×3 (02:14→18:23)
[2022-07-19] MEDS: ACETAMINOPHEN 325 MG TABLET (FP) PO SCH ×5 (03:06→22:28)
[2022-07-19] MEDS: LACTATED RINGERS SOLUTION 1,000 ML/1,000 ML INFUS.BAG IV SCH ×2 (03:14→14:01)
[2022-07-19] MEDS: HEPARIN NA (PORCINE) 5,000 UNITS/ML 1ML VIAL SQ SCH ×3 (06:34→22:27)
[2022-07-19] MEDS: DOCUSATE SODIUM 100 MG CAPSULE (FP) PO SCH ×3 (06:35→22:28)
[2022-07-19 08:37] LABS: BASO % 0.2 % (0-2.0); EOS % 0.1 % (0-4.5); HEMOGLOBIN 10.9 GM/dL (10.7-15.3); LYMPH % 7.9 % (8-40); MCH 30.9 pg (25.7-33.7); MCHC 35.2 g/dl (32.0-36.0); MEAN CELL VOLUME 87.6 fl (80-96); MEAN PLT VOLUME 7.3 fl (7.5-11.1); MONO % 9.1 % (3.8-10.2); NEUT % 82.7 % (42.8-82.8); PLATELET COUNT 255 10^3/uL (134-434); RBC 3.54 M/mm3 (3.60-5.2); RDW 12.8 % (11.6-15.6); WHITE BLOOD COUNT 10.1 K/mm3 (4.0-10.0)
[2022-07-19] MEDS: DULoxetine HCL 30 MG CAPSULE.DR PO SCH (09:09)
[2022-07-19] MEDS: LISINOPRIL 20 MG TABLET PO SCH (09:09)
[2022-07-19] MEDS: amLODIPine BESYLATE 5 MG TABLET (FP) PO SCH (09:09)
[2022-07-19] MEDS: POLYETHYLENE GLYCOL (HEALTHYLAX) 3350 17 GM PACKET PO SCH (09:10)
[2022-07-19] MEDS: FERROUS SO4 325 MG TABLET (FP) PO SCH (09:11)
[2022-07-19] MEDS: FOLIC ACID 1 MG TABLET (FP) PO SCH (09:13)
[2022-07-19 09:34] LABS: ALBUMIN 2.8 g/dl (3.4-5.0)
[2022-07-19 09:37] LABS: CALCIUM 8.5 mg/dL (8.5-10.1)
[2022-07-19 10:14] LABS: BILIRUBIN,TOTAL 0.5 mg/dL (0.2-1); BLOOD UREA NITROGEN 7.5 mg/dL (7-18); CREATININE 0.5 mg/dL (0.55-1.3); TOT PROT 5.8 g/dl (6.4-8.2)
[2022-07-19] MEDS ORDERED: traMADol HCL 50 MG TABLET PO PRN (10:51)
[2022-07-19] MEDS: ATORVASTATIN CA 20 MG TABLET (FP) PO SCH (22:28)
[2022-07-20] MEDS: ACETAMINOPHEN 325 MG TABLET (FP) PO SCH ×6 (01:19→23:00)
[2022-07-20] MEDS: CEFAZOLIN 1 GM in DEXTROSE 5%-WATER - 50 ML IVPB SCH ×3 (01:21→17:44)
[2022-07-20] MEDS: DOCUSATE SODIUM 100 MG CAPSULE (FP) PO SCH ×3 (06:33→23:48)
[2022-07-20] MEDS: HEPARIN NA (PORCINE) 5,000 UNITS/ML 1ML VIAL SQ SCH ×4 (06:33→23:48)
[2022-07-20 08:11] LABS: BASO % 0.4 % (0-2.0); EOS % 1.3 % (0-4.5); HEMATOCRIT 30.5 % (32.4-45.2); HEMOGLOBIN 10.8 GM/dL (10.7-15.3); LYMPH % 11.5 % (8-40); MCH 30.7 pg (25.7-33.7); MCHC 35.4 g/dl (32.0-36.0); MEAN CELL VOLUME 86.7 fl (80-96); MEAN PLT VOLUME 7.2 fl (7.5-11.1); MONO % 8.1 % (3.8-10.2); NEUT % 78.7 % (42.8-82.8); PLATELET COUNT 274 10^3/uL (134-434); RBC 3.52 M/mm3 (3.60-5.2); RDW 12.9 % (11.6-15.6); WHITE BLOOD COUNT 8.9 K/mm3 (4.0-10.0)
[2022-07-20 08:27] LABS: ALBUMIN 2.5 g/dl (3.4-5.0); BLOOD UREA NITROGEN 10.7 mg/dL (7-18); CALCIUM 8.2 mg/dL (8.5-10.1)
[2022-07-20 08:30] LABS: CREATININE 0.5 mg/dL (0.55-1.3)
[2022-07-20 08:31] LABS: BILIRUBIN,TOTAL 0.5 mg/dL (0.2-1)
[2022-07-20 08:33] LABS: TOT PROT 5.6 g/dl (6.4-8.2)
[2022-07-20] MEDS: DULoxetine HCL 30 MG CAPSULE.DR PO SCH (09:05)
[2022-07-20] MEDS: amLODIPine BESYLATE 5 MG TABLET (FP) PO SCH (09:06)
[2022-07-20] MEDS: LISINOPRIL 20 MG TABLET PO SCH (09:06)
[2022-07-20] MEDS: FOLIC ACID 1 MG TABLET (FP) PO SCH (09:06)
[2022-07-20] MEDS: FERROUS SO4 325 MG TABLET (FP) PO SCH (09:06)
[2022-07-20] MEDS: POLYETHYLENE GLYCOL (HEALTHYLAX) 3350 17 GM PACKET PO SCH (09:12)
[2022-07-20] MEDS: ONDANSETRON 4 MG/2 ML VIAL IVPUSH PRN (11:18)
[2022-07-20] MEDS ORDERED: POTASSIUM CHLORIDE ORAL LIQUID 20 MEQ/15 ML PO ONE (11:24)
[2022-07-20] MEDS ORDERED: POTASSIUM CHLORIDE TABS 10 MEQ TABLET.ER (FP) PO SCH (12:15)
[2022-07-20] MEDS: LACTATED RINGERS SOLUTION 1,000 ML/1,000 ML INFUS.BAG IV SCH ×2 (12:35→23:00)
[2022-07-20] MEDS ORDERED: diphenhydrAMINE HCL 25 MG CAPSULE (FP) PO PRN (22:38)
[2022-07-20] MEDS ORDERED: ONDANSETRON 4 MG/2 ML VIAL IVPUSH PRN (22:38)
[2022-07-20] MEDS ORDERED: SUMAtriptan SUCCINATE 50 MG TABLET PO PRN (22:38)
[2022-07-20] MEDS ORDERED: NALOXONE HCL 0.4 MG/ML VIAL IVPUSH PRN (22:38)
[2022-07-20] MEDS: ATORVASTATIN CA 20 MG TABLET (FP) PO SCH ×3 (23:00→23:52)
[2022-07-21 00:02] VITALS: BMI 20.1
[2022-07-21] MEDS: DOCUSATE SODIUM 100 MG CAPSULE (FP) PO SCH ×6 (00:59→22:42)
[2022-07-21] MEDS: CEFAZOLIN 1 GM in DEXTROSE 5%-WATER - 50 ML IVPB SCH ×3 (02:53→17:34)
[2022-07-21] MEDS: ACETAMINOPHEN 325 MG TABLET (FP) PO SCH ×7 (02:54→21:26)
[2022-07-21] MEDS: HEPARIN NA (PORCINE) 5,000 UNITS/ML 1ML VIAL SQ SCH ×3 (06:14→21:27)
[2022-07-21] MEDS: traMADol HCL 50 MG TABLET PO PRN (06:20)
[2022-07-21] MEDS: DULoxetine HCL 30 MG CAPSULE.DR PO SCH (10:28)
[2022-07-21] MEDS: amLODIPine BESYLATE 5 MG TABLET (FP) PO SCH ×2 (10:28→10:48)
[2022-07-21] MEDS: LISINOPRIL 20 MG TABLET PO SCH (10:29)
[2022-07-21] MEDS: FOLIC ACID 1 MG TABLET (FP) PO SCH (10:30)
[2022-07-21] MEDS: POTASSIUM CHLORIDE TABS 20 MEQ TABLET.ER (FP) PO SCH (10:30)
[2022-07-21] MEDS: FERROUS SO4 325 MG TABLET (FP) PO SCH (10:30)
[2022-07-21] MEDS: POLYETHYLENE GLYCOL (HEALTHYLAX) 3350 17 GM PACKET PO SCH (10:30)
[2022-07-21 15:07] VITALS: RESP 18
[2022-07-21] MEDS: ATORVASTATIN CA 20 MG TABLET (FP) PO SCH (21:27)
[2022-07-21] MEDS: LACTATED RINGERS SOLUTION 1,000 ML/1,000 ML INFUS.BAG IV SCH (22:39)
[2022-07-22] MEDS: CEFAZOLIN 1 GM in DEXTROSE 5%-WATER - 50 ML IVPB SCH ×3 (02:15→17:51)
[2022-07-22] MEDS: ACETAMINOPHEN 325 MG TABLET (FP) PO SCH ×3 (02:16→10:03)
[2022-07-22] MEDS: DOCUSATE SODIUM 100 MG CAPSULE (FP) PO SCH ×3 (05:59→22:48)
[2022-07-22] MEDS: HEPARIN NA (PORCINE) 5,000 UNITS/ML 1ML VIAL SQ SCH ×3 (05:59→22:48)
[2022-07-22] MEDS: POLYETHYLENE GLYCOL (HEALTHYLAX) 3350 17 GM PACKET PO SCH ×2 (09:59→10:14)
[2022-07-22] MEDS: FOLIC ACID 1 MG TABLET (FP) PO SCH (10:00)
[2022-07-22] MEDS: LISINOPRIL 20 MG TABLET PO SCH ×2 (10:00→10:15)
[2022-07-22] MEDS: DULoxetine HCL 30 MG CAPSULE.DR PO SCH (10:00)
[2022-07-22] MEDS: amLODIPine BESYLATE 5 MG TABLET (FP) PO SCH ×2 (10:01→10:15)
[2022-07-22] MEDS: POTASSIUM CHLORIDE TABS 20 MEQ TABLET.ER (FP) PO SCH (10:01)
[2022-07-22] MEDS: FERROUS SO4 325 MG TABLET (FP) PO SCH (10:01)
[2022-07-22] MEDS: ATORVASTATIN CA 20 MG TABLET (FP) PO SCH (22:48)
[2022-07-22] MEDS: traMADol HCL 50 MG TABLET PO PRN (22:49)
[2022-07-23] MEDS: CEFAZOLIN 1 GM in DEXTROSE 5%-WATER - 50 ML IVPB SCH ×3 (01:24→17:34)
[2022-07-23] MEDS: HEPARIN NA (PORCINE) 5,000 UNITS/ML 1ML VIAL SQ SCH ×2 (06:20→14:09)
[2022-07-23] MEDS: DOCUSATE SODIUM 100 MG CAPSULE (FP) PO SCH ×2 (06:20→14:09)
[2022-07-23] MEDS: DULoxetine HCL 30 MG CAPSULE.DR PO SCH (09:38)
[2022-07-23] MEDS: POTASSIUM CHLORIDE TABS 20 MEQ TABLET.ER (FP) PO SCH (09:38)
[2022-07-23] MEDS: POLYETHYLENE GLYCOL (HEALTHYLAX) 3350 17 GM PACKET PO SCH (09:39)
[2022-07-23] MEDS: LISINOPRIL 20 MG TABLET PO SCH ×2 (09:39→09:49)
[2022-07-23] MEDS: FERROUS SO4 325 MG TABLET (FP) PO SCH (09:39)
[2022-07-23] MEDS: FOLIC ACID 1 MG TABLET (FP) PO SCH (09:39)
[2022-07-23] MEDS: amLODIPine BESYLATE 5 MG TABLET (FP) PO SCH ×2 (09:39→09:50)
[2022-07-23 14:58] VITALS: PULSE 80; TEMP 98.4
[2022-07-23 20:06] VITALS: BP 144/74
== END 2022-07-23 20:05 | disposition home or self-care (01) | DRG 454 ==
LOC: J2C 04:00 → J4W 18:24 → J7W 07-20 20:38
PROVIDERS: ADMIT Internal Medicine; ATTEND Internal Medicine
PROC: 0SG0071 Fusion of Lumbar Vertebral Joint with Autologous Tissue Substitute, Posterior Approach, Posterior Column, Open Approach (ICD-10-PCS; 2022-07-17)
PROC: 01NB0ZZ Release Lumbar Nerve, Open Approach (ICD-10-PCS; 2022-07-17)
PROC: 0ST20ZZ Resection of Lumbar Vertebral Disc, Open Approach (ICD-10-PCS; 2022-07-17)
PROC: 00QT0ZZ Repair Spinal Meninges, Open Approach (ICD-10-PCS; 2022-07-17)
PROC: 0QP004Z Removal of Internal Fixation Device from Lumbar Vertebra, Open Approach (ICD-10-PCS; 2022-07-17)
PROC: 4A11X4G Monitoring of Peripheral Nervous Electrical Activity, Intraoperative, External Approach (ICD-10-PCS; 2022-07-17)
PROC: 0SG10AJ Fusion of 2 or more Lumbar Vertebral Joints with Interbody Fusion Device, Posterior Approach, Anterior Column, Open Approach (ICD-10-PCS; principal; 2022-07-17 08:00)
DX: M48.061 Spinal stenosis, lumbar region without neurogenic claudication (principal); G12.21 Amyotrophic lateral sclerosis; G97.41 Accidental puncture or laceration of dura during a procedure; M48.56XA Collapsed vertebra, not elsewhere classified, lumbar region, initial encounter for fracture; M54.16 Radiculopathy, lumbar region; I10 Essential (primary) hypertension; G62.9 Polyneuropathy, unspecified; M54.50 Low back pain, unspecified; R53.1 Weakness; Y83.8 Other surgical procedures as the cause of abnormal reaction of the patient, or of later complication, without mention of misadventure at the time of the procedure
CPT/HCPCS: 36415; 72131-TC; 76000-TC-FY; 80048; 80053; 85025; 85027; 86850; 86900; 86901; 94760; 97116-GP; 97162-GP; C1889; C9803-CS; J1644; U0003; U0005

== ENCOUNTER 2023-02-08 14:23 | Inpatient (IN) | payer OTHER, BC ==
[2023-02-08 14:58] VITALS: BMI 21.9
[2023-02-08] MEDS ORDERED: KETOROLAC TROMETHAMINE 30 MG/1 ML VIAL IM ONE (15:34)
[2023-02-08] MEDS ORDERED: KETOROLAC TROMETHAMINE 30 MG/1 ML VIAL ONE (15:42)
[2023-02-08 18:06] LABS: BASO % 0.5 % (0-2.0); EOS % 0.6 % (0-4.5); HEMATOCRIT 40.5 % (32.4-45.2); HEMOGLOBIN 13.5 GM/dL (10.7-15.3); LYMPH % 16.5 % (8-40); MCH 28.9 pg (25.7-33.7); MCHC 33.3 g/dl (32.0-36.0); MEAN CELL VOLUME 86.6 fl (80-96); MEAN PLT VOLUME 7.2 fl (7.5-11.1); MONO % 7.5 % (3.8-10.2); NEUT % 74.9 % (42.8-82.8); PLATELET COUNT 383 10^3/uL (134-434); RBC 4.67 M/mm3 (3.60-5.2); RDW 14.3 % (11.6-15.6); WHITE BLOOD COUNT 8.4 K/mm3 (4.0-10.0)
[2023-02-08 18:30] LABS: CALCIUM 8.8 mg/dL (8.5-10.1)
[2023-02-08 18:31] LABS: ALBUMIN 3.4 g/dl (3.4-5.0); BLOOD UREA NITROGEN 23.1 mg/dL (7-18)
[2023-02-08 18:34] LABS: CREATININE 0.7 mg/dL (0.55-1.3)
[2023-02-08 18:36] LABS: TOT PROT 6.9 g/dl (6.4-8.2)
[2023-02-08 18:38] LABS: BILIRUBIN,TOTAL 0.4 mg/dL (0.2-1)
[2023-02-08] MEDS ORDERED: ACETAMINOPHEN 1000 MG/100 ML BAG IVPB ONE (19:43)
[2023-02-08] MEDS ORDERED: ACETAMINOPHEN INJECTION 100 ML IVPB ONE (19:44)
[2023-02-08] MEDS ORDERED: morphine SULFATE 4 MG/ML VIAL IVPUSH ONE (21:05)
[2023-02-08] MEDS ORDERED: ONDANSETRON 4 MG/2 ML VIAL IVPB ONE (21:06)
[2023-02-08] MEDS ORDERED: ONDANSETRON 4 MG/2 ML VIAL ONE (21:13)
[2023-02-08 22:04] LABS: INR 1.13 (0.83-1.09); PROTHROMBIN TIME (PATIENT) 13.1 SEC (9.7-13.0)
[2023-02-08] MEDS ORDERED: morphine CARPU-JECT 4 MG/1 ML DISP.SYRIN IVPUSH ONE (22:42)
[2023-02-08] MEDS ORDERED: morphine SULFATE 4 MG/ML VIAL ONE (22:46)
[2023-02-09] MEDS ORDERED: ACETAMINOPHEN 325 MG TABLET (FP) PO PRN (02:00)
[2023-02-09] MEDS ORDERED: FLU VACC QS2022-23(6MOS UP)/PF 60 MCG/0.5 ML SYRINGE IM ONE (03:12)
[2023-02-09 08:22] LABS: BASO % 0.4 % (0-2.0); EOS % 1.8 % (0-4.5); HEMATOCRIT 38.3 % (32.4-45.2); HEMOGLOBIN 12.8 GM/dL (10.7-15.3); LYMPH % 23.3 % (8-40); MCH 29.7 pg (25.7-33.7); MCHC 33.3 g/dl (32.0-36.0); MEAN CELL VOLUME 89.1 fl (80-96); MEAN PLT VOLUME 7.2 fl (7.5-11.1); MONO % 10.7 % (3.8-10.2); NEUT % 63.8 % (42.8-82.8); PLATELET COUNT 337 10^3/uL (134-434); RDW 14.1 % (11.6-15.6); WHITE BLOOD COUNT 7.3 K/mm3 (4.0-10.0)
[2023-02-09 08:42] LABS: CALCIUM 8.8 mg/dL (8.5-10.1)
[2023-02-09 08:43] LABS: BLOOD UREA NITROGEN 26.6 mg/dL (7-18)
[2023-02-09 08:46] LABS: CREATININE 0.7 mg/dL (0.55-1.3)
[2023-02-09] MEDS: HEPARIN NA (PORCINE) 5,000 UNITS/ML 1ML VIAL SQ SCH ×2 (10:02→22:51)
[2023-02-09] MEDS ORDERED: SUMAtriptan SUCCINATE 50 MG TABLET PO PRN (12:49)
[2023-02-09] MEDS ORDERED: traMADol HCL 50 MG TABLET PO PRN (12:51)
[2023-02-09] MEDS: DOCUSATE SODIUM 100 MG CAPSULE (FP) PO SCH ×2 (13:36→22:51)
[2023-02-09] MEDS ORDERED: ATORVASTATIN CA 20 MG TABLET (FP) PO SCH (22:00)
[2023-02-10] MEDS: DOCUSATE SODIUM 100 MG CAPSULE (FP) PO SCH (06:09)
[2023-02-10 06:15] VITALS: BP 117/56; PULSE 62; RESP 16; TEMP 97
[2023-02-10] MEDS ORDERED: PATIENT'S OWN MEDICATION (NON-FORMULARY) (Amlodipine Besylate/Benazepril [Lotrel 5-40 Mg C PO SCH (10:00)
[2023-02-10] MEDS ORDERED: POLYETHYLENE GLYCOL (HEALTHYLAX) 3350 17 GM PACKET PO SCH (10:00)
[2023-02-10] MEDS ORDERED: LISINOPRIL 20 MG TABLET PO SCH (10:00)
[2023-02-10] MEDS ORDERED: FERROUS SO4 325 MG TABLET (FP) PO SCH (10:00)
[2023-02-10] MEDS ORDERED: amLODIPine BESYLATE 5 MG TABLET (FP) PO SCH (10:00)
[2023-02-10] MEDS ORDERED: FOLIC ACID 1 MG TABLET (FP) PO SCH (10:00)
[2023-02-10] MEDS ORDERED: DULoxetine HCL 30 MG CAPSULE.DR PO SCH (10:00)
[2023-02-10] MEDS: HEPARIN NA (PORCINE) 5,000 UNITS/ML 1ML VIAL SQ SCH (10:06)
== END 2023-02-10 03:00 | disposition home or self-care (01) | DRG 536 ==
LOC: JER 14:23 → JERBED 20:20 → J7W 02-09 01:09
PROVIDERS: ADMIT Internal Medicine; ATTEND Internal Medicine
DX: S32.592A Other specified fracture of left pubis, initial encounter for closed fracture (principal); G12.23 Primary lateral sclerosis; S82.831A Other fracture of upper and lower end of right fibula, initial encounter for closed fracture; G43.909 Migraine, unspecified, not intractable, without status migrainosus; I10 Essential (primary) hypertension; W19.XXXA Unspecified fall, initial encounter; Y93.89 Activity, other specified; Y92.009 Unspecified place in unspecified non-institutional (private) residence as the place of occurrence of the external cause; Y99.8 Other external cause status; E78.5 Hyperlipidemia, unspecified; Z99.3 Dependence on wheelchair; M81.0 Age-related osteoporosis without current pathological fracture
CPT/HCPCS: 0241U-QW; 36415; 72170-TC-FY; 73562-TC-RT-FY; 73590-TC-RT-FY; 73610-TC-RT-FY; 73630-TC-RT-FY; 80048; 80053; 85025; 85610; 85730; 86850; 86900; 86901; 93005; 93010; 99285-25; J1644

== ENCOUNTER 2023-04-17 10:38 | Emergency (ER) | payer OTHER, BC ==
[2023-04-17 11:06] VITALS: BMI 21.7
[2023-04-17 22:00] VITALS: BP 122/72; PULSE 78; RESP 19; TEMP 97.9
== END 2023-04-17 22:18 | disposition home or self-care (01) ==
LOC: JER 10:38
DX: M25.552 Pain in left hip (principal); S32.502D Unspecified fracture of left pubis, subsequent encounter for fracture with routine healing; S82.402D Unspecified fracture of shaft of left fibula, subsequent encounter for closed fracture with routine healing; W19.XXXD Unspecified fall, subsequent encounter
CPT/HCPCS: 73502-TC-LT-FY; 73562-TC-RT-FY; 73610-TC-RT-FY; 93971-TC; 99284-25

== ENCOUNTER 2024-03-20 07:29 | Inpatient (IN) | payer OTHER, BC ==
[2024-03-20 08:04] VITALS: RESP 18; BMI 20.9
[2024-03-20] MEDS ORDERED: ACETAMINOPHEN INJECTION 100 ML IVPB ONE (08:25)
[2024-03-20] MEDS ORDERED: MAG HYDROX/AL HYDROX/SIMETH 30 ML UNIT-DOSE CUP ONE (08:25)
[2024-03-20] MEDS ORDERED: ONDANSETRON 4 MG/2 ML VIAL ONE (08:25)
[2024-03-20] MEDS ORDERED: FAMOTIDINE 20 MG/50 ML IVPB 20 MG/50 ML MG IVPB ONE (08:25)
[2024-03-20] MEDS: ACETAMINOPHEN 1000 MG/100 ML BAG IVPB ONE (08:44)
[2024-03-20] MEDS: MAG HYDROX/AL HYDROX/SIMETH 30 ML UNIT-DOSE CUP PO ONE (08:44)
[2024-03-20] MEDS: ONDANSETRON 4 MG/2 ML VIAL IVPUSH ONE (08:44)
[2024-03-20] MEDS: FAMOTIDINE 20 MG/50 ML IVPB 20 MG/50 ML MG IVPB ONE (08:44)
[2024-03-20 08:49] LABS: BASO % 0.4 % (0-2.0); EOS % 0.6 % (0-4.5); HEMATOCRIT 43.3 % (32.4-45.2); HEMOGLOBIN 14.9 GM/dL (10.7-15.3); LYMPH % 13.9 % (8-40); MCH 29.9 pg (25.7-33.7); MCHC 34.5 g/dl (32.0-36.0); MEAN CELL VOLUME 86.6 fl (80-96); MONO % 8.1 % (3.8-10.2); PLATELET COUNT 413 10^3/uL (134-434); RBC 4.99 M/mm3 (3.60-5.2); RDW 13.9 % (11.6-15.6); WHITE BLOOD COUNT 9.4 K/mm3 (4.0-10.0)
[2024-03-20] MEDS: SODIUM CHLORIDE 0.9% 500 ML INFUS.BAG IV ONE ×2 (09:05→12:41)
[2024-03-20 09:16] LABS: CALCIUM 9.4 mg/dL (8.5-10.1)
[2024-03-20 09:17] LABS: ALBUMIN 3.7 g/dl (3.4-5.0); BLOOD UREA NITROGEN 14.7 mg/dL (7-18)
[2024-03-20 09:19] LABS: CREATININE 0.6 mg/dL (0.55-1.3)
[2024-03-20 09:21] LABS: BILIRUBIN,TOTAL 0.8 mg/dL (0.2-1); TOT PROT 7.5 g/dl (6.4-8.2)
[2024-03-20] MEDS ORDERED: KCL 10 MEQ IVPB 10 MEQ/100 ML INFUS.BAG IVPB ONE ×3 (09:51→12:33)
[2024-03-20] MEDS: KCL 10 MEQ IVPB 10 MEQ/100 ML INFUS.BAG IVPB SCH (09:59)
[2024-03-20 10:01] LABS: EPI CELLS 14 /uL (0-25.1); HYALINE CASTS 21 /uL (0-3.1); PH,URINE 5.5 (5.0-8.0); URINE APPEARANCE CLOUDY; URINE BACTERIA >9,000 /uL (0-1359); URINE BILIRUBIN NEGATIVE (NEGATIVE); URINE COLOR YELLOW; URINE GLUCOSE (UA) NEGATIVE (NEGATIVE); URINE KETONE 4+ (NEGATIVE); URINE LEUK ESTERASE 1+ (NEGATIVE); URINE NITRITE POSITIVE (NEGATIVE); URINE PROTEIN 1+ (NEGATIVE); URINE WBC 718 /uL (0-25.8)
[2024-03-20] MEDS ORDERED: METOCLOPRAMIDE HCL INJECTION 10 MG/2 ML VIAL ONE (12:05)
[2024-03-20] MEDS ORDERED: CEFTRIAXONE 1 GM/50 ML BAG ONE (12:06)
[2024-03-20] MEDS: METOCLOPRAMIDE HCL INJECTION 10 MG/2 ML VIAL IVPB ONE (12:14)
[2024-03-20] MEDS: CEFTRIAXONE 1 GM in DEXTROSE 5%-WATER - 100 ML IVPB ONE (12:14)
[2024-03-20] MEDS ORDERED: SUMAtriptan SUCCINATE 50 MG TABLET PO PRN (12:41)
[2024-03-20] MEDS: DOCUSATE SODIUM 100 MG CAPSULE (FP) PO SCH (15:03)
[2024-03-20] MEDS: ONDANSETRON 4 MG/2 ML VIAL IVPUSH PRN (20:45)
[2024-03-20] MEDS: ACETAMINOPHEN 325 MG TABLET (FP) PO PRN (20:45)
[2024-03-20] MEDS: HEPARIN NA (PORCINE) 5,000 UNITS/ML 1ML VIAL SQ SCH (21:10)
[2024-03-21 09:49] LABS: BASO % 0.7 % (0-2.0); HEMATOCRIT 39.2 % (32.4-45.2); LYMPH % 27.2 % (8-40); MCH 29.7 pg (25.7-33.7); MCHC 33.2 g/dl (32.0-36.0); MEAN CELL VOLUME 89.3 fl (80-96); MEAN PLT VOLUME 7.6 fl (7.5-11.1); MONO % 8.3 % (3.8-10.2); NEUT % 62.8 % (42.8-82.8); PLATELET COUNT 350 10^3/uL (134-434); RBC 4.39 M/mm3 (3.60-5.2); RDW 13.9 % (11.6-15.6); WHITE BLOOD COUNT 5.7 K/mm3 (4.0-10.0)
[2024-03-21 10:01] LABS: POTASSIUM 3.5 mmol/L (3.5-5.1)
[2024-03-21 10:17] LABS: ALBUMIN 3.2 g/dl (3.4-5.0); BLOOD UREA NITROGEN 12.1 mg/dL (7-18)
[2024-03-21 10:20] LABS: CREATININE 0.5 mg/dL (0.55-1.3)
[2024-03-21 10:21] LABS: BILIRUBIN,TOTAL 0.8 mg/dL (0.2-1); TOT PROT 6.4 g/dl (6.4-8.2)
[2024-03-21] MEDS: CEFTRIAXONE 1 GM in DEXTROSE 5%-WATER - 50 ML IVPB SCH (10:58)
[2024-03-21] MEDS: DULoxetine HCL 30 MG CAPSULE.DR PO SCH (12:22)
[2024-03-21] MEDS: POLYETHYLENE GLYCOL (HEALTHYLAX) 3350 17 GM PACKET PO SCH (12:23)
[2024-03-21] MEDS: FOLIC ACID 1 MG TABLET (FP) PO SCH (12:23)
[2024-03-21] MEDS: SUMAtriptan SUCCINATE 50 MG TABLET PO SCH (14:38)
[2024-03-21] MEDS: FAMOTIDINE 20 MG TABLET PO SCH (15:19)
[2024-03-24] MEDS: PANTOPRAZOLE 40 MG TABLET PO SCH (10:30)
[2024-03-24 14:44] VITALS: BP 128/65; PULSE 77; TEMP 98.6
== END 2024-03-24 15:29 | disposition home or self-care (01) | DRG 690 ==
LOC: JER 07:29 → JERBED 12:01 → OBSVTOIN 12:43 → J5S 13:57
PROVIDERS: ADMIT Internal Medicine; ATTEND Internal Medicine
DX: N39.0 Urinary tract infection, site not specified (principal); G12.23 Primary lateral sclerosis; B96.20 Unspecified Escherichia coli [E. coli] as the cause of diseases classified elsewhere; G43.909 Migraine, unspecified, not intractable, without status migrainosus; G62.9 Polyneuropathy, unspecified; M54.50 Low back pain, unspecified; G35 Multiple sclerosis; K21.9 Gastro-esophageal reflux disease without esophagitis
CPT/HCPCS: 36415; 74177-TC; 80053; 81003; 83690; 84484; 85025; 87086; 87186; 93005; 93010; 99285-25; G0378; J0131; J1644; Q9967